=== PATIENT | female | born 1990 | race American Indian/Alaskan Native ===

== ENCOUNTER 2018-06-09 21:14 | Observation (INO) | payer OTHER ==
--- NOTE | 2018-06-09 22:09 | ED PDOC ---
Arrival/HPI - General Chief Complaint: Weakness/Neurological Deficit Time Seen by Provider: 06/09/18 21:32 Historian: Patient - History of Present Illness Narrative History of Present Illness (Text): 06/09/18 22:02 27 year old female, currently taking control medication, presents to the emergency department with right side numbness and tingling. Patient informs she began feeling numbness in her right forearm at about 12:00 yesterday. Patient states today numbness spread to the right side of her right leg. Patient denies any weakness to the extremities. Patient also denies any fevers, chills, headache, dizziness, chest pain, shortness of breath, cough, diaphoresis, abdominal pain, nausea, vomiting, diarrhea, back pain, neck pain, or any other complaint. PMD: [facility] Time/Duration: Prior to Arrival, 24 hours Symptom Onset: Gradual Symptom Course: Unchanged Activities at Onset: Light Past Medical History - Provider Review Nursing Documentation Reviewed: Yes - Infectious Disease Hx of Infectious Diseases: None - Psychiatric Hx Substance Use: No - Surgical History Hx Section: Yes (x1) - Anesthesia Hx Anesthesia: Yes Hx Anesthesia Reactions: No Hx Malignant Hyperthermia: No Family/Social History - Physician Review Nursing Documentation Reviewed: Yes Family/Social History: No Known Family HX Smoking Status: Never Smoked Hx Alcohol Use: No Hx Substance Use: No Allergies/Home Meds Allergies/Adverse Reactions: Allergies No Known Allergies Allergy (Verified 06/09/18 21:35) Review of Systems - Physician Review All systems were reviewed & negative as marked: Yes - Review of Systems Constitutional: absent: Fevers, Night Sweats Respiratory: absent: SOB, Cough Cardiovascular: absent: Chest Pain Gastrointestinal: absent: Abdominal Pain, Diarrhea, Nausea, Vomiting Musculoskeletal: absent: Back Pain, Neck Pain Neurological: Other (Numbness and tingling). absent: Headache, Dizziness Endocrine: absent: Diaphoresis Physical Exam - Physical Exam Narrative Physical Exam (Text): 06/09/18 22:10 Gen: VS reviewed, alert, well developed, well nourished, nontoxic, mild distress Eye: EOMI, PERRL ENT: normal pharynx. Neck: no JVD, supple, no adenopathy CV: regular rate, regular rhythm, no rubs,no murmur, S1, S2 Pulm: no distress, clear to auscultation, no wheeze, no rhonchi, breath sounds equal, no rales Abd: soft, nontender, no guarding, no rebound, no rigidity Ext: no edema Skin: good color, no rash, no cyanosis Psych: responds appropriately to questions, normal affect Neuro: oriented x3, CN2-12 intact grossly, motor intact, diminished sensation to right forearm, lateral right hand, right lower leg, and right foot Vital Signs Reviewed: Yes Vital Signs Temp Pulse Resp BP Pulse Ox 06/09/18 21:30 98.0 F 60 16 128/73 100 Temperature: Afebrile Blood Pressure: Normal Pulse: Regular Respiratory Rate: Normal Appearance: Positive for: Well-Appearing, Non-Toxic, Comfortable Pain Distress: None Mental Status: Positive for: Alert and Oriented X 3 Medical Decision Making ED Course and Treatment: 06/09/18 22:17 Impression: 27 year old female presents with right sided numbness. Plan: -- Type and Screen -- CT Head -- EKG -- CMP, A1C, Lipid, Trop -- CBC, Platelets -- Chest X-ray -- Neuro Consult -- Reassess and disposition Prior Visits: Notes and results from previous visits were reviewed. 06/09/18 22:[address] oliveira, agrees that patient is not a thrombolysis candidate, assuming no ICH start patient on aspirin. 06/10/18 00:[address] danielle to the hospitalist service. patient to be admitted for right sided numbness, rule out cva, risk factors included exogenous hormones - RAD Interpretation Narrative RAD Interpretations (Text): 06/09/18 23:55 cxr my read: no focal infiltrate, no ptx, no wide mediastinum 06/10/18 00:07 CT Head without Intravenous Contrast. CLINICAL HISTORY: NUMBNESS TECHNIQUE: Axial computed tomography images of the head/brain without intravenous contrast. 890.69 mGy-cm COMPARISON: None provided. FINDINGS: BRAIN No acute intraparenchymal hemorrhage. No mass lesion. No CT evidence for acute territorial infarct. No midline shift or extra-axial collections. VENTRICLES: No hydrocephalus. ORBITS: The orbits are unremarkable. SINUSES AND MASTOIDS: The paranasal sinuses and mastoid air cells are clear. BONES: No fracture. SOFT TISSUES: Unremarkable. IMPRESSION: No acute intracranial abnormality. Strap Buckler Machine: ED Physician, Radiologist - EKG Interpretation EKG Interpretation (Text): 06/09/18 22:32 ekg my read: sinus bradycardia at 59 bpm, nml qrs, nml axis, no acute stt w abn Interpreted by ED Physician: Yes NIHSS Scale ([place]) Time Performed: 22:31 - How Severe is the Stoke Baseline Level of Consciousness: 0=Alert LOC to Questions: 0=Both comments correct LOC to commands: 0=Obeys both correctly Best Gaze: 0=Normal Visual: 0=No visual loss Facial: 0=Normal Motor Arm - Left: 0=No drift Motor Arm - Right: 0=No drift Motor Leg - Left: 0=No drift Motor Leg - Right: 0=No drift Limb Ataxia: 0=Absent Sensory: 1=Mild to moderate loss Best Language: 0=No aphasia Dysarthia: 0=Normal articulation Extinction & Inattention (Neglect): 0=Normal, no object Score: 1 Risk Level: Minor Stroke Risk rTPA Inclusion/Exclusion - Refusal of Treatment Patient Refused Treatment: No - Inclusion Criteria for Altepase All of the below criteria for inclusion were reviewed: Yes Patient is 18 years or Older: Yes The Clinical Diagnosis of Ischemic Stroke That is Causing a Potentially Disabling Neurological Deficit: Yes Time of Onset is Well Established to be Less Than 270 Minute Before Treatment Would Begin: Yes Risk/Benefit Discussed With Patient/Family Member Present: Yes - Scribe Statement The provider has reviewed the documentation as recorded by the Scribe Armin Dos Santos All medical record entries made by the Scribe were at my direction and pe rsonally dictated by me. I have reviewed the chart and agree that the record accurately reflects my personal performance of the history, physical exam, medical decision making, and the department course for this patient. I have also personally directed, reviewed, and agree with the discharge instructions and disposition. Disposition/Present on Arrival - Present on Arrival Any Indicators Present on Arrival: No History of DVT/PE: No History of Uncontrolled Diabetes: No Urinary Catheter: No History of Decub. Ulcer: No History Surgical Site Infection Following: None - Disposition Have Diagnosis and Disposition been Completed?: Yes Diagnosis: Numbness Disposition: HOSPITALIZED Disposition Time: 00:09 Patient Plan: Observation Patient Problems: Current Active Problems Problem Status Onset Numbness Acute Condition: STABLE Forms: Jini (Grenadian)
[2018-06-09] MEDS ORDERED: Sodium Chloride 0.9% 1,000 ML IV SCH (22:15)
[2018-06-09 22:23] LABS: BASO # 0.02 K/mm3 (0.0-2.0); BASO % 0.3 % (0.0-3.0); EOS # 0.4 (0.0-0.7); EOS % 4.5 % (1.5-5.0); HEMOGLOBIN 12.2 g/dL (12.0-16.0); LYMPH # 3.8 (1.2-3.4); LYMPH % 48.8 % (22.0-35.0); MEAN CELL VOLUME 89.4 fl (80.0-105.0); MEAN CORPUSCULAR HEMOGLOBIN 29.3 pg (25.0-35.0); MEAN CORPUSCULAR HGB CONC 32.7 g/dl (31.0-37.0); MEAN PLATELET VOLUME 10.2 fl (7.0-11.0); MONO # 0.4 (0.1-0.6); MONO % 5.6 % (1.0-6.0); RBC 4.17 10^6/uL (3.5-6.1); RED CELL DISTRIBUTION WIDTH 14.2 % (11.5-14.5); WHITE BLOOD COUNT 7.7 10^3/uL (4.5-11.0)
[2018-06-09 22:32] LABS: ALB/GLOB RATIO 1.2 (1.1-1.8); ALT/SGPT 14 U/L (7-56); AST/SGOT 19 U/L (14-36); BLOOD UREA NITROGEN 16 mg/dL (7-21); CALCIUM 9.2 mg/dL (8.4-10.5); GFR NON-AFRICAN AMERICAN > 60; HDL CHOLESTEROL 57 mg/dL (29-60)
[2018-06-09 22:43] LABS: LDL CHOLESTEROL 119 mg/dL (0-129)
[2018-06-09 22:46] LABS: INR 1.08; PARTIAL THROMBOPLASTIN TIME 29.3 Seconds (26.9-38.3); PROTHROMBIN TIME 12.2 SECONDS (9.4-12.5); TROPONIN I < 0.01 ng/mL
[2018-06-09 23:16] LABS: BARBITURATES, UR NEGATIVE (NEGATIVE); BENZODIAZEPINES, UR NEGATIVE (NEGATIVE); OPIATES, UR NEGATIVE (NEGATIVE); PHENCYCLIDINE, UR NEGATIVE (NEGATIVE)
--- NOTE | 2018-06-10 00:34 | CP.PCM.HP ---
<Richard Valencia - Last Filed: 06/10/18 01:01> History of Present Illness - History of Present Illness History of Present Illness: Dr Valencia [facility]&P Hospitalist Service 27F w/ no known pmhx, on OCPs, presents to [facility] [place] [facility] with a two day hx of R distal forearm and 1st dorsal web space numbness that changed to hyperesthesias, today she noticed a gradual onset of right posterior leg and plantar foot numbness. Pt denies ever having symptoms like this before. She did not know what to make of this and decided to come into the ED after researching on the internet. Pt has also noticed a 4/10 headache that is worsened by light. Denies weakness, falls, head trauma, CP, SOB, FC ,NV, vision/hearing changes, abnormal gait, dizziness, loss of balance, slurring of speech, facial weakness/numbness. Of note, Pt was recently sick with a URI/sinusitis and was prescribed Z kayy. PMHx: denies PSHx: denies FH: Father 51yo CVA, HTN SocHx: denies smoking etoh drug use Allergies: NKDA HomeRx: OCPs Present on Admission - Present on Admission Any Indicators Present on Admission: No Review of Systems - Review of Systems All systems: reviewed and no additional remarkable complaints except (as per HPI) Past Patient History - Infectious Disease Hx of Infectious Diseases: None - Past Social History Smoking Status: Never Smoked - PSYCHIATRIC Hx Substance Use: No - SURGICAL HISTORY Hx Section: Yes (x1) - ANESTHESIA Hx Anesthesia: Yes Hx Anesthesia Reactions: No Hx Malignant Hyperthermia: No Meds Allergies/Adverse Reactions: Allergies Allergy/AdvReac Type Severity Reaction Status Date / Time No Known Allergies Allergy Verified 06/09/18 21:35 Physical Exam - Constitutional Appears: Non-toxic, No Acute Distress - Head Exam Head Exam: ATRAUMATIC, NORMAL INSPECTION - Eye Exam Eye Exam: EOMI, Normal appearance, PERRL. absent: Nystagmus, Periorbital swelling - ENT Exam ENT Exam: Mucous Membranes Moist - Neck Exam Neck exam: Negative for: Meningismus, Thyromegaly - Respiratory Exam Respiratory Exam: Clear to Auscultation Bilateral. absent: Rales, Rhonchi, Wheezes - Cardiovascular Exam Cardiovascular Exam: RRR, +S1, +S2 - Extremities Exam Extremities exam: Positive for: full ROM, normal capillary refill, pedal pulses present. Negative for: calf tenderness - Neurological Exam Neurological exam: Alert, CN II-XII Intact, Oriented x3, Reflexes Normal Additional comments: Hypersensitivity w/ light palpation of the R distal forearm: distribution- dorsum brach radialis to 1st dorsi interossi- C7 dermatome numbness in RLE below knee, worse in posterior leg and plantar foot aspects - Psychiatric Exam Psychiatric exam: Normal Affect, Normal Mood - Skin Skin Exam: Dry, Normal Color, Warm Results - Vital Signs Recent Vital Signs: Last Vital Signs Temp 98.0 F 06/09/18 21:30 Pulse 64 06/09/18 23:24 Resp 18 06/09/18 23:24 BP 143/92 H 06/09/18 23:24 Pulse Ox 100 06/09/18 23:24 - Labs Result Diagrams: 06/09/18 21:37 06/09/18 21:37 Labs: Laboratory Results - last 24 hr 06/09/18 06/09/18 06/09/18 21:37 21:37 21:37 WBC 7.7 RBC 4.17 Hgb 12.2 Hct 37.3 MCV 89.4 MCH 29.3 MCHC 32.7 RDW 14.2 Plt Count 236 MPV 10.2 Neut % (Auto) 40.8 L Lymph % (Auto) 48.8 H Murray % (Auto) 5.6 Eos % (Auto) 4.5 Baso % (Auto) 0.3 Lymph # (Auto) 3.8 H Murray # (Auto) 0.4 Eos # (Auto) 0.4 Baso # (Auto) 0.02 Absolute Neuts (auto) 3.14 PT 12.2 INR 1.08 APTT 29.3 Sodium 140 Potassium 3.8 Chloride 105 Carbon Dioxide 28 Anion Gap 11 BUN 16 Creatinine 0.7 Est GFR ( Amer) > 60 Est GFR (Non-Af Amer) > 60 Random Glucose 85 Calcium 9.2 Total Bilirubin 0.1 L AST 19 ALT 14 Alkaline Phosphatase 41 Troponin I < 0.01 Total Protein 7.3 Albumin 4.0 Globulin 3.3 Albumin/Globulin Ratio 1.2 Triglycerides 60 Cholesterol 190 LDL Cholesterol Direct 119 HDL Cholesterol 57 Urine Opiates Screen Urine Methadone Screen Ur Barbiturates Screen Ur Phencyclidine Scrn Ur Amphetamines Screen U Benzodiazepines Scrn U Oth Cocaine Metabols U Cannabinoids Screen BBK History Checked 06/09/18 06/09/18 22:52 23:08 WBC RBC Hgb Hct MCV MCH MCHC RDW Plt Count MPV Neut % (Auto) Lymph % (Auto) Murray % (Auto) Eos % (Auto) Baso % (Auto) Lymph # (Auto) Murray # (Auto) Eos # (Auto) Baso # (Auto) Absolute Neuts (auto) PT INR APTT Sodium Potassium Chloride Carbon Dioxide Anion Gap BUN Creatinine Est GFR ( Amer) Est GFR (Non-Af Amer) Random Glucose Calcium Total Bilirubin AST ALT Alkaline Phosphatase Troponin I Total Protein Albumin Globulin Albumin/Globulin Ratio Triglycerides Cholesterol LDL Cholesterol Direct HDL Cholesterol Urine Opiates Screen Negative Urine Methadone Screen Negative Ur Barbiturates Screen Negative Ur Phencyclidine Scrn Negative Ur Amphetamines Screen Negative U Benzodiazepines Scrn Negative U Oth Cocaine Metabols Negative U Cannabinoids Screen Negative BBK History Checked No verified bt Assessment & Plan - Assessment and Plan (Free Text) Assessment: 27F with risk factor of OCP use admitted for Right sided numbness, r/o CVA Plan: r/o CVA -Dr Meadows Neuro consulted: f/u further recs give ASA 325 MRI -NS @ 100 -f/u AM labs -f/u b12 folate and iron -possible post viral PPx ASA 81 daily HHD CK PGY1 <Sofie Resendiz - Last Filed: 06/10/18 19:00> Results - Vital Signs Recent Vital Signs: Last Vital Signs Temp 98.2 F 06/10/18 12:00 Pulse 64 06/10/18 14:00 Resp 18 06/10/18 12:00 BP 125/85 06/10/18 12:00 Pulse Ox 99 06/10/18 06:00 - Labs Result Diagrams: 06/09/18 21:37 06/09/18 21:37 Labs: Laboratory Results - last 24 hr 06/09/18 06/09/18 06/09/18 21:37 21:37 21:37 WBC 7.7 RBC 4.17 Hgb 12.2 Hct 37.3 MCV 89.4 MCH 29.3 MCHC 32.7 RDW 14.2 Plt Count 236 MPV 10.2 Neut % (Auto) 40.8 L Lymph % (Auto) 48.8 H Murray % (Auto) 5.6 Eos % (Auto) 4.5 Baso % (Auto) 0.3 Lymph # (Auto) 3.8 H Murray # (Auto) 0.4 Eos # (Auto) 0.4 Baso # (Auto) 0.02 Absolute Neuts (auto) 3.14 PT 12.2 INR 1.08 APTT 29.3 Sodium 140 Potassium 3.8 Chloride 105 Carbon Dioxide 28 Anion Gap 11 BUN 16 Creatinine 0.7 Est GFR ( Amer) > 60 Est GFR (Non-Af Amer) > 60 Random Glucose 85 Hemoglobin A1c Calcium 9.2 Iron TIBC % Saturation Total Bilirubin 0.1 L AST 19 ALT 14 Alkaline Phosphatase 41 Troponin I < 0.01 Total Protein 7.3 Albumin 4.0 Globulin 3.3 Albumin/Globulin Ratio 1.2 Triglycerides 60 Cholesterol 190 LDL Cholesterol Direct 119 HDL Cholesterol 57 Vitamin B12 Folate TSH 3rd Generation Urine Opiates Screen Urine Methadone Screen Ur Barbiturates Screen Ur Phencyclidine Scrn Ur Amphetamines Screen U Benzodiazepines Scrn U Oth Cocaine Metabols U Cannabinoids Screen RPR Blood Type Blood Type Confirm Antibody Screen BBK History Checked 06/09/18 06/09/18 06/09/18 21:37 21:37 21:37 WBC RBC Hgb Hct MCV MCH MCHC RDW Plt Count MPV Neut % (Auto) Lymph % (Auto) Murray % (Auto) Eos % (Auto) Baso % (Auto) Lymph # (Auto) Murray # (Auto) Eos # (Auto) Baso # (Auto) Absolute Neuts (auto) PT INR APTT Sodium Potassium Chloride Carbon Dioxide Anion Gap BUN Creatinine Est GFR ( Amer) Est GFR (Non-Af Amer) Random Glucose Hemoglobin A1c 5.1 Calcium Iron 121 TIBC 370 % Saturation 33 Total Bilirubin AST ALT Alkaline Phosphatase Troponin I Total Protein Albumin Globulin Albumin/Globulin Ratio Triglycerides Cholesterol LDL Cholesterol Direct HDL Cholesterol Vitamin B12 490 Folate 5.4 TSH 3rd Generation Urine Opiates Screen Urine Methadone Screen Ur Barbiturates Screen Ur Phencyclidine Scrn Ur Amphetamines Screen U Benzodiazepines Scrn U Oth Cocaine Metabols U Cannabinoids Screen RPR Blood Type Blood Type Confirm Antibody Screen BBK History Checked 06/09/18 06/09/18 06/09/18 21:37 21:37 22:52 WBC RBC Hgb Hct MCV MCH MCHC RDW Plt Count MPV Neut % (Auto) Lymph % (Auto) Murray % (Auto) Eos % (Auto) Baso % (Auto) Lymph # (Auto) Murray # (Auto) Eos # (Auto) Baso # (Auto) Absolute Neuts (auto) PT INR APTT Sodium Potassium Chloride Carbon Dioxide Anion Gap BUN Creatinine Est GFR ( Amer) Est GFR (Non-Af Amer) Random Glucose Hemoglobin A1c Calcium Iron TIBC % Saturation Total Bilirubin AST ALT Alkaline Phosphatase Troponin I Total Protein Albumin Globulin Albumin/Globulin Ratio Triglycerides Cholesterol LDL Cholesterol Direct HDL Cholesterol Vitamin B12 Folate TSH 3rd Generation 2.29 Urine Opiates Screen Negative Urine Methadone Screen Negative Ur Barbiturates Screen Negative Ur Phencyclidine Scrn Negative Ur Amphetamines Screen Negative U Benzodiazepines Scrn Negative U Oth Cocaine Metabols Negative U Cannabinoids Screen Negative RPR Nonreactive Blood Type Blood Type Confirm Antibody Screen BBK History Checked 06/09/18 06/09/18 23:08 23:22 WBC RBC Hgb Hct MCV MCH MCHC RDW Plt Count MPV Neut % (Auto) Lymph % (Auto) Murray % (Auto) Eos % (Auto) Baso % (Auto) Lymph # (Auto) Murray # (Auto) Eos # (Auto) Baso # (Auto) Absolute Neuts (auto) PT INR APTT Sodium Potassium Chloride Carbon Dioxide Anion Gap BUN Creatinine Est GFR ( Amer) Est GFR (Non-Af Amer) Random Glucose Hemoglobin A1c Calcium Iron TIBC % Saturation Total Bilirubin AST ALT Alkaline Phosphatase Troponin I Total Protein Albumin Globulin Albumin/Globulin Ratio Triglycerides Cholesterol LDL Cholesterol Direct HDL Cholesterol Vitamin B12 Folate TSH 3rd Generation Urine Opiates Screen Urine Methadone Screen Ur Barbiturates Screen Ur Phencyclidine Scrn Ur Amphetamines Screen U Benzodiazepines Scrn U Oth Cocaine Metabols U Cannabinoids Screen RPR Blood Type O POSITIVE Blood Type Confirm O POSITIVE Antibody Screen Negative BBK History Checked No verified bt Attending/Attestation - Attestation I have personally seen and examined this patient.: Yes I have fully participated in the care of the patient.: Yes I have reviewed all pertinent clinical information: Yes Notes (Text): 06/10/18 19:00 seen and examined. Discussed with resident. A& P as above.
[2018-06-10 01:59] LABS: IRON 121 ug/dL (45-180)
[2018-06-10 02:08] LABS: % IRON SATURATION 33 % (20-55); TOTAL IRON BINDING CAPACITY 370 ug/dL (265-497)
[2018-06-10 02:38] VITALS: RESP 18
[2018-06-10 08:01] VITALS: O2SAT 99
--- NOTE | 2018-06-10 08:22 | CT ---
Date of service: 06/09/2018 PROCEDURE: CT HEAD WITHOUT CONTRAST. HISTORY: numbness COMPARISON: None available. TECHNIQUE: Axial computed tomography images were obtained through the head/brain without intravenous contrast. Radiation dose: Total exam DLP = 890.69 mGy-cm. This CT exam was performed using one or more of the following dose reduction techniques: Automated exposure control, adjustment of the mA and/or kV according to patient size, and/or use of iterative reconstruction technique. FINDINGS: HEMORRHAGE: No intracranial hemorrhage. BRAIN: No mass effect or edema. No atrophy or chronic microvascular ischemic changes. VENTRICLES: No hydrocephalus. CALVARIUM: Unremarkable. PARANASAL SINUSES: Unremarkable as visualized. No significant inflammatory changes. MASTOID AIR CELLS: Unremarkable as visualized. No inflammatory changes. OTHER FINDINGS: None. IMPRESSION: No acute intracranial pathology identified. Preliminary impression was provided by Tier [facility].
--- NOTE | 2018-06-10 08:27 | RAD ---
HISTORY: cva COMPARISON: None available TECHNIQUE: Chest, one view. FINDINGS: LUNGS: No focal consolidation. Please note that chest x-ray has limited sensitivity for the detection of pulmonary masses. PLEURA: No significant pleural effusion identified. No definite pneumothorax . CARDIOVASCULAR: The cardiomediastinal silhouette appears within normal limits of size. No significant atherosclerotic calcification present. OSSEOUS STRUCTURES: No acute osseous abnormality identified. VISUALIZED UPPER ABDOMEN: Unremarkable. OTHER FINDINGS: None. IMPRESSION: No focal consolidation.
--- NOTE | 2018-06-10 09:23 | CARD ---
APPROVED REPORT Date of service: 06/09/2018 EKG Measurement Heart [id number] <Conclusion> Sinus bradycardia Otherwise normal ECG
[2018-06-10 12:04] VITALS: BP 125/85; TEMP 98.2
--- NOTE | 2018-06-10 12:33 | MRI ---
Date of service: 06/10/2018 PROCEDURE: MRI BRAIN WITHOUT CONTRAST HISTORY: right arm and right leg paraesthesia and pain COMPARISON: None available. TECHNIQUE: Multiplanar, multisequence MR images of the brain were obtained without intravenous contrast enhancement. FINDINGS: HEMORRHAGE: None DWI: No evidence of an acute or early subacute infarction. BRAIN PARENCHYMA: No mass effect or edema. No atrophy or chronic microvascular ischemic changes. VENTRICLES: Unremarkable. No hydrocephalus. CRANIUM: Unremarkable. ORBITS: Grossly unremarkable. PARANASAL SINUSES/MASTOIDS: Clear VASCULAR SYSTEM: Skull base flow voids intact. OTHER FINDINGS: None. IMPRESSION: Unremarkable non contrast enhanced MRI of the brain.
--- NOTE | 2018-06-10 12:34 | MRI ---
Date of service: 06/10/2018 PROCEDURE: MR CERVICAL SPINE WITHOUT CONTRAST HISTORY: hand weakness COMPARISON: None available. TECHNIQUE: Multiecho multiplanar sequences were performed through the cervical spine without the use of intravenous contrast. FINDINGS: Normal lordotic curvature. Craniocervical junction unremarkable. Vertebral body heights preserved. No marrow signal abnormality. Normal cervical cord. No paraspinal abnormality. C2-C3: No disc herniation, spinal canal stenosis or neural foraminal narrowing. C3-C4: No disc herniation, spinal canal stenosis or neural foraminal narrowing. C4-C5: No disc herniation, spinal canal stenosis or neural foraminal narrowing. C5-C6: No disc herniation, spinal canal stenosis or neural foraminal narrowing. C6-C7: No disc herniation, spinal canal stenosis or neural foraminal narrowing. C7-T1: No disc herniation, spinal canal stenosis or neural foraminal narrowing. OTHER FINDINGS: None. IMPRESSION: Unremarkable non contrast enhanced MRI of the cervical spine.
[2018-06-10 13:50] LABS: FOLATE 5.4 ng/mL
--- NOTE | 2018-06-10 14:06 | MRI ---
Date of service: 06/10/2018 PROCEDURE: MR LUMBAR SPINE WITHOUT CONTRAST HISTORY: leg weakness COMPARISON: None available. TECHNIQUE: Multiecho multiplanar sequences were performed through the lumbar spine without the use of intravenous contrast. FINDINGS: Normal lumbar lordosis. Vertebral body heights are preserved. Marrow signal unremarkable. Conus medullaris unremarkable at the level of Paraspinal soft tissues are unremarkable. T12-L1: No disc herniation, spinal canal stenosis or neural foraminal narrowing. L1-2: No disc herniation, spinal canal stenosis or neural foraminal narrowing. L2-3: No disc herniation, spinal canal stenosis or neural foraminal narrowing. L3-4: No disc herniation, spinal canal stenosis or neural foraminal narrowing. L4-5: No disc herniation, spinal canal stenosis or neural foraminal narrowing. L5-S1: No disc herniation, spinal canal stenosis or neural foraminal narrowing. OTHER FINDINGS: None. IMPRESSION: Unremarkable non contrast enhanced MRI of the lumbar spine.
--- NOTE | 2018-06-10 14:13 | CP.PCM.CON ---
<Alf Mina - Last Filed: 06/10/18 14:21> History of Present Illness - History of Present Illness History of Present Illness: Alf Mina PGY2 Neurology Consult Note for Dr. Piedra Requested by: Dr. Orr 27F with no significant pmhx, on OCPs, [place] [facility] [place] hx of R distal forearm and 1st dorsal web space numbness. She also noticed gradual onset of right posterior leg and plantar foot numbness. Pt denies ever having symptoms like this before. Patient denies any trauma to arm or leg, weakness, falls, head trauma, CP, SOB, FC ,NV, vision/hearing changes, abnormal gait, dizziness, loss of balance, slurring of speech, facial weakness/numbness. Of note, Pt was recently sick with a URI/sinusitis and was prescribed Z kayy. PMHx: denies PSHx: denies FH: Father at 51yo CVA, HTN SocHx: denies smoking , alcohol, or illicit drug use Allergies: NKDA HomeRx: OCPs Review of Systems - Constitutional Constitutional: absent: Headache - Cardiovascular Cardiovascular: absent: Chest Pain - Musculoskeletal Musculoskeletal: Numbness. absent: Radiating Pain into Limb - Neurological Neurological: Numbness. absent: Behavioral Changes, Burning Sensations, Confusion, Convulsions, Disequilibrium, Dizziness, Focal Weakness, Frequent Falls, Headaches, Lack of Coordination, Loss of Vision, Memory Loss, Radicular Pain, Restless Legs, Sensory Deficit, Syncope, Tingling, Tremor, Vertigo, Weakness Past Patient History - Infectious Disease Hx of Infectious Diseases: None - Past Social History Smoking Status: Never Smoked - CARDIAC Hx Cardiac Disorders: No - PULMONARY Hx Respiratory Disorders: No - NEUROLOGICAL Hx Neurological Disorder: No - HEENT Hx HEENT Problems: No - RENAL Hx Chronic Kidney Disease: No - ENDOCRINE/METABOLIC Hx Endocrine Disorders: No - HEMATOLOGICAL/ONCOLOGICAL Hx Blood Disorders: No - INTEGUMENTARY Hx Dermatological Problems: No - MUSCULOSKELETAL/RHEUMATOLOGICAL Hx Musculoskeletal Disorders: No Hx Falls: No - GASTROINTESTINAL Hx Gastrointestinal Disorders: No - GENITOURINARY/GYNECOLOGICAL Hx Genitourinary Disorders: No - PSYCHIATRIC Hx Substance Use: No - SURGICAL HISTORY Hx Section: Yes (x1) - ANESTHESIA Hx Anesthesia: Yes Hx Anesthesia Reactions: No Hx Malignant Hyperthermia: No Meds Allergies/Adverse Reactions: Allergies Allergy/AdvReac Type Severity Reaction Status Date / Time No Known Allergies Allergy Verified 06/09/18 21:35 - Medications Medications: Current Medications Aspirin (Aspirin Chewable) 81 mg PO DAILY [facility] Last Admin: 06/10/18 09:18 Dose: Not Given Sodium Chloride (Sodium Chloride 0.9%) 1,000 mls @ 100 mls/hr IV .Q10H [facility] Last Admin: 06/09/18 22:30 Dose: 100 mls/hr Physical Exam - Constitutional Appears: Non-toxic - Head Exam Head Exam: ATRAUMATIC, NORMAL INSPECTION, NORMOCEPHALIC - Eye Exam Eye Exam: EOMI, Normal appearance - ENT Exam ENT Exam: Mucous Membranes Moist - Cardiovascular Exam Cardiovascular Exam: +S1, +S2 - Neurological Exam Neurological exam: Alert, CN II-XII Intact, Normal Gait, Oriented x3, Reflexes Normal Additional comments: slight sensory deficit in right distal forearm and and right lower leg posterior aspect. ROM intact Results - Vital Signs Recent Vital Signs: Last Vital Signs Temp 98.2 F 06/10/18 12:00 Pulse 69 06/10/18 12:00 Resp 18 06/10/18 12:00 BP 125/85 06/10/18 12:00 Pulse Ox 99 06/10/18 06:00 - Labs Result Diagrams: 06/09/18 21:37 06/09/18 21:37 Labs: Laboratory Results - last 24 hr 06/09/18 06/09/18 06/09/18 21:37 21:37 21:37 WBC 7.7 RBC 4.17 Hgb 12.2 Hct 37.3 MCV 89.4 MCH 29.3 MCHC 32.7 RDW 14.2 Plt Count 236 MPV 10.2 Neut % (Auto) 40.8 L Lymph % (Auto) 48.8 H Wise % (Auto) 5.6 Eos % (Auto) 4.5 Baso % (Auto) 0.3 Lymph # (Auto) 3.8 H Wise # (Auto) 0.4 Eos # (Auto) 0.4 Baso # (Auto) 0.02 Absolute Neuts (auto) 3.14 PT 12.2 INR 1.08 APTT 29.3 Sodium 140 Potassium 3.8 Chloride 105 Carbon Dioxide 28 Anion Gap 11 BUN 16 Creatinine 0.7 Est GFR ( Amer) > 60 Est GFR (Non-Af Amer) > 60 Random Glucose 85 Hemoglobin A1c Calcium 9.2 Iron TIBC % Saturation Total Bilirubin 0.1 L AST 19 ALT 14 Alkaline Phosphatase 41 Troponin I < 0.01 Total Protein 7.3 Albumin 4.0 Globulin 3.3 Albumin/Globulin Ratio 1.2 Triglycerides 60 Cholesterol 190 LDL Cholesterol Direct 119 HDL Cholesterol 57 Vitamin B12 Folate TSH 3rd Generation Urine Opiates Screen Urine Methadone Screen Ur Barbiturates Screen Ur Phencyclidine Scrn Ur Amphetamines Screen U Benzodiazepines Scrn U Oth Cocaine Metabols U Cannabinoids Screen Blood Type Blood Type Confirm Antibody Screen BBK History Checked 06/09/18 06/09/18 06/09/18 21:37 21:37 21:37 WBC RBC Hgb Hct MCV MCH MCHC RDW Plt Count MPV Neut % (Auto) Lymph % (Auto) Wise % (Auto) Eos % (Auto) Baso % (Auto) Lymph # (Auto) Wise # (Auto) Eos # (Auto) Baso # (Auto) Absolute Neuts (auto) PT INR APTT Sodium Potassium Chloride Carbon Dioxide Anion Gap BUN Creatinine Est GFR ( Amer) Est GFR (Non-Af Amer) Random Glucose Hemoglobin A1c 5.1 Calcium Iron 121 TIBC 370 % Saturation 33 Total Bilirubin AST ALT Alkaline Phosphatase Troponin I Total Protein Albumin Globulin Albumin/Globulin Ratio Triglycerides Cholesterol LDL Cholesterol Direct HDL Cholesterol Vitamin B12 490 Folate 5.4 TSH 3rd Generation Urine Opiates Screen Urine Methadone Screen Ur Barbiturates Screen Ur Phencyclidine Scrn Ur Amphetamines Screen U Benzodiazepines Scrn U Oth Cocaine Metabols U Cannabinoids Screen Blood Type Blood Type Confirm Antibody Screen BBK History Checked 06/09/18 06/09/18 06/09/18 21:37 22:52 23:08 WBC RBC Hgb Hct MCV MCH MCHC RDW Plt Count MPV Neut % (Auto) Lymph % (Auto) Wise % (Auto) Eos % (Auto) Baso % (Auto) Lymph # (Auto) Wise # (Auto) Eos # (Auto) Baso # (Auto) Absolute Neuts (auto) PT INR APTT Sodium Potassium Chloride Carbon Dioxide Anion Gap BUN Creatinine Est GFR ( Amer) Est GFR (Non-Af Amer) Random Glucose Hemoglobin A1c Calcium Iron TIBC % Saturation Total Bilirubin AST ALT Alkaline Phosphatase Troponin I Total Protein Albumin Globulin Albumin/Globulin Ratio Triglycerides Cholesterol LDL Cholesterol Direct HDL Cholesterol Vitamin B12 Folate TSH 3rd Generation 2.29 Urine Opiates Screen Negative Urine Methadone Screen Negative Ur Barbiturates Screen Negative Ur Phencyclidine Scrn Negative Ur Amphetamines Screen Negative U Benzodiazepines Scrn Negative U Oth Cocaine Metabols Negative U Cannabinoids Screen Negative Blood Type O POSITIVE Blood Type Confirm Antibody Screen Negative BBK History Checked No verified bt 06/09/18 23:22 WBC RBC Hgb Hct MCV MCH MCHC RDW Plt Count MPV Neut % (Auto) Lymph % (Auto) Wise % (Auto) Eos % (Auto) Baso % (Auto) Lymph # (Auto) Wise # (Auto) Eos # (Auto) Baso # (Auto) Absolute Neuts (auto) PT INR APTT Sodium Potassium Chloride Carbon Dioxide Anion Gap BUN Creatinine Est GFR ( Amer) Est GFR (Non-Af Amer) Random Glucose Hemoglobin A1c Calcium Iron TIBC % Saturation Total Bilirubin AST ALT Alkaline Phosphatase Troponin I Total Protein Albumin Globulin Albumin/Globulin Ratio Triglycerides Cholesterol LDL Cholesterol Direct HDL Cholesterol Vitamin B12 Folate TSH 3rd Generation Urine Opiates Screen Urine Methadone Screen Ur Barbiturates Screen Ur Phencyclidine Scrn Ur Amphetamines Screen U Benzodiazepines Scrn U Oth Cocaine Metabols U Cannabinoids Screen Blood Type Blood Type Confirm O POSITIVE Antibody Screen BBK History Checked Assessment & Plan - Assessment and Plan (Free Text) Plan: Right Arm numbness and RLE numbness rule out stroke -CT head negative for acute patholgy -Brain MRI negative -Lumbar and Spine MRI negative -f/u b12 folate -syphillis workup -patient does not seem to have CVA, no need to statin or aspirin therapy -PT/OT -possible gabapentin if symptoms continue <Jj Piedra - Last Filed: 06/10/18 15:54> Meds - Medications Medications: Current Medications Aspirin (Aspirin Chewable) 81 mg PO DAILY [facility] Last Admin: 06/10/18 09:18 Dose: Not Given Sodium Chloride (Sodium Chloride 0.9%) 1,000 mls @ 100 mls/hr IV .Q10H [facility] Last Admin: 06/09/18 22:30 Dose: 100 mls/hr Results - Vital Signs Recent Vital Signs: Last Vital Signs Temp 98.2 F 06/10/18 12:00 Pulse 64 06/10/18 14:00 Resp 18 06/10/18 12:00 BP 125/85 06/10/18 12:00 Pulse Ox 99 06/10/18 06:00 - Labs Result Diagrams: 06/09/18 21:37 06/09/18 21:37 Labs: Laboratory Results - last 24 hr 06/09/18 06/09/18 06/09/18 21:37 21:37 21:37 WBC 7.7 RBC 4.17 Hgb 12.2 Hct 37.3 MCV 89.4 MCH 29.3 MCHC 32.7 RDW 14.2 Plt Count 236 MPV 10.2 Neut % (Auto) 40.8 L Lymph % (Auto) 48.8 H Wise % (Auto) 5.6 Eos % (Auto) 4.5 Baso % (Auto) 0.3 Lymph # (Auto) 3.8 H Wise # (Auto) 0.4 Eos # (Auto) 0.4 Baso # (Auto) 0.02 Absolute Neuts (auto) 3.14 PT 12.2 INR 1.08 APTT 29.3 Sodium 140 Potassium 3.8 Chloride 105 Carbon Dioxide 28 Anion Gap 11 BUN 16 Creatinine 0.7 Est GFR ( Amer) > 60 Est GFR (Non-Af Amer) > 60 Random Glucose 85 Hemoglobin A1c Calcium 9.2 Iron TIBC % Saturation Total Bilirubin 0.1 L AST 19 ALT 14 Alkaline Phosphatase 41 Troponin I < 0.01 Total Protein 7.3 Albumin 4.0 Globulin 3.3 Albumin/Globulin Ratio 1.2 Triglycerides 60 Cholesterol 190 LDL Cholesterol Direct 119 HDL Cholesterol 57 Vitamin B12 Folate TSH 3rd Generation Urine Opiates Screen Urine Methadone Screen Ur Barbiturates Screen Ur Phencyclidine Scrn Ur Amphetamines Screen U Benzodiazepines Scrn U Oth Cocaine Metabols U Cannabinoids Screen RPR Blood Type Blood Type Confirm Antibody Screen BBK History Checked 06/09/18 06/09/18 06/09/18 21:37 21:37 21:37 WBC RBC Hgb Hct MCV MCH MCHC RDW Plt Count MPV Neut % (Auto) Lymph % (Auto) Wise % (Auto) Eos % (Auto) Baso % (Auto) Lymph # (Auto) Wise # (Auto) Eos # (Auto) Baso # (Auto) Absolute Neuts (auto) PT INR APTT Sodium Potassium Chloride Carbon Dioxide Anion Gap BUN Creatinine Est GFR ( Amer) Est GFR (Non-Af Amer) Random Glucose Hemoglobin A1c 5.1 Calcium Iron 121 TIBC 370 % Saturation 33 Total Bilirubin AST ALT Alkaline Phosphatase Troponin I Total Protein Albumin Globulin Albumin/Globulin Ratio Triglycerides Cholesterol LDL Cholesterol Direct HDL Cholesterol Vitamin B12 490 Folate 5.4 TSH 3rd Generation Urine Opiates Screen Urine Methadone Screen Ur Barbiturates Screen Ur Phencyclidine Scrn Ur Amphetamines Screen U Benzodiazepines Scrn U Oth Cocaine Metabols U Cannabinoids Screen RPR Blood Type Blood Type Confirm Antibody Screen BBK History Checked 06/09/18 06/09/18 06/09/18 21:37 21:37 22:52 WBC RBC Hgb Hct MCV MCH MCHC RDW Plt Count MPV Neut % (Auto) Lymph % (Auto) Wise % (Auto) Eos % (Auto) Baso % (Auto) Lymph # (Auto) Wise # (Auto) Eos # (Auto) Baso # (Auto) Absolute Neuts (auto) PT INR APTT Sodium Potassium Chloride Carbon Dioxide Anion Gap BUN Creatinine Est GFR ( Amer) Est GFR (Non-Af Amer) Random Glucose Hemoglobin A1c Calcium Iron TIBC % Saturation Total Bilirubin AST ALT Alkaline Phosphatase Troponin I Total Protein Albumin Globulin Albumin/Globulin Ratio Triglycerides Cholesterol LDL Cholesterol Direct HDL Cholesterol Vitamin B12 Folate TSH 3rd Generation 2.29 Urine Opiates Screen Negative Urine Methadone Screen Negative Ur Barbiturates Screen Negative Ur Phencyclidine Scrn Negative Ur Amphetamines Screen Negative U Benzodiazepines Scrn Negative U Oth Cocaine Metabols Negative U Cannabinoids Screen Negative RPR Nonreactive Blood Type Blood Type Confirm Antibody Screen BBK History Checked 06/09/18 06/09/18 23:08 23:22 WBC RBC Hgb Hct MCV MCH MCHC RDW Plt Count MPV Neut % (Auto) Lymph % (Auto) Wise % (Auto) Eos % (Auto) Baso % (Auto) Lymph # (Auto) Wise # (Auto) Eos # (Auto) Baso # (Auto) Absolute Neuts (auto) PT INR APTT Sodium Potassium Chloride Carbon Dioxide Anion Gap BUN Creatinine Est GFR ( Amer) Est GFR (Non-Af Amer) Random Glucose Hemoglobin A1c Calcium Iron TIBC % Saturation Total Bilirubin AST ALT Alkaline Phosphatase Troponin I Total Protein Albumin Globulin Albumin/Globulin Ratio Triglycerides Cholesterol LDL Cholesterol Direct HDL Cholesterol Vitamin B12 Folate TSH 3rd Generation Urine Opiates Screen Urine Methadone Screen Ur Barbiturates Screen Ur Phencyclidine Scrn Ur Amphetamines Screen U Benzodiazepines Scrn U Oth Cocaine Metabols U Cannabinoids Screen RPR Blood Type O POSITIVE Blood Type Confirm O POSITIVE Antibody Screen Negative BBK History Checked No verified bt Assessment & Plan - Assessment and Plan (Free Text) Plan: All medical record entries made by the Resident were at my direction and personally dictated by me. I have reviewed the chart and agree that the record accurately reflects my personal performance of the history, physical exam, medical decision making, and the department course for this patient. I have also personally directed, reviewed, and agree with the discharge instructions and disposition. 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 I will follow up with her outpatient, with EMG/NCV recommended. Dr. Piedra Neurology
[2018-06-10 15:44] VITALS: PULSE 64
--- NOTE | 2018-06-10 16:08 | CP.PCM.DIS ---
<BrandanOctavio - Last Filed: 06/10/18 16:09> Provider - Provider Date of Admission: 06/10/18 00:10 Attending physician: Poli Mckeon MD Consults: 06/09/18 22:12 Stroke Team Consult Routine Comment: Consulting Provider: Neurohospitalist Consulting Physician: NEUROHOSP Neurohospitalist for Consult: David Meadows Neurohospitalist for Consult: Jj Piedra Reason for Consult: right sided numbness, on BCP Time Spent in preparation of Discharge (in minutes): 35 Hospital Course - Lab Results Lab Results: Most Recent Lab Values WBC 7.7 10^3/uL (4.5-11.0) 06/09/18 21:37 RBC 4.17 10^6/uL (3.5-6.1) 06/09/18 21:37 Hgb 12.2 g/dL (12.0-16.0) 06/09/18 21:37 Hct 37.3 % (36.0-48.0) 06/09/18 21:37 MCV 89.4 fl (80.0-105.0) 06/09/18 21:37 MCH 29.3 pg (25.0-35.0) 06/09/18 21:37 MCHC 32.7 g/dl (31.0-37.0) 06/09/18 21:37 RDW 14.2 % (11.5-14.5) 06/09/18 21:37 Plt Count 236 10^3/uL (120.0-450.0) 06/09/18 21:37 MPV 10.2 fl (7.0-11.0) 06/09/18 21:37 Neut % (Auto) 40.8 % (50.0-68.0) L 06/09/18 21:37 Lymph % (Auto) 48.8 % (22.0-35.0) H 06/09/18 21:37 Maury % (Auto) 5.6 % (1.0-6.0) 06/09/18 21:37 Eos % (Auto) 4.5 % (1.5-5.0) 06/09/18 21:37 Baso % (Auto) 0.3 % (0.0-3.0) 06/09/18 21:37 Lymph # (Auto) 3.8 (1.2-3.4) H 06/09/18 21:37 Maury # (Auto) 0.4 (0.1-0.6) 06/09/18 21:37 Eos # (Auto) 0.4 (0.0-0.7) 06/09/18 21:37 Baso # (Auto) 0.02 K/mm3 (0.0-2.0) 06/09/18 21:37 Absolute Neuts (auto) 3.14 (1.4-6.5) 06/09/18 21:37 PT 12.2 SECONDS (9.4-12.5) 06/09/18 21:37 INR 1.08 06/09/18 21:37 APTT 29.3 Seconds (26.9-38.3) 06/09/18 21:37 Sodium 140 mmol/L (132-148) 06/09/18 21:37 Potassium 3.8 mmol/L (3.6-5.0) 06/09/18 21:37 Chloride 105 mmol/L (98-107) 06/09/18 21:37 Carbon Dioxide 28 mmol/L (21-33) 06/09/18 21:37 Anion Gap 11 (10-20) 06/09/18 21:37 BUN 16 mg/dL (7-21) 06/09/18 21:37 Creatinine 0.7 mg/dl (0.7-1.2) 06/09/18 21:37 Est GFR ( Amer) > 60 06/09/18 21:37 Est GFR (Non-Af Amer) > 60 06/09/18 21:37 Random Glucose 85 mg/dL (70-110) 06/09/18 21:37 Hemoglobin A1c 5.1 % (4.2-6.5) 06/09/18 21:37 Calcium 9.2 mg/dL (8.4-10.5) 06/09/18 21:37 Iron 121 ug/dL (45-180) 06/09/18 21:37 TIBC 370 ug/dL (265-497) 06/09/18 21:37 % Saturation 33 % (20-55) 06/09/18 21:37 Total Bilirubin 0.1 mg/dL (0.2-1.3) L 06/09/18 21:37 AST 19 U/L (14-36) 06/09/18 21:37 ALT 14 U/L (7-56) 06/09/18 21:37 Alkaline Phosphatase 41 U/L (38-126) 06/09/18 21:37 Troponin I < 0.01 ng/mL 06/09/18 21:37 Total Protein 7.3 g/dL (5.8-8.3) 06/09/18 21:37 Albumin 4.0 g/dL (3.0-4.8) 06/09/18 21:37 Globulin 3.3 gm/dL 06/09/18 21:37 Albumin/Globulin Ratio 1.2 (1.1-1.8) 06/09/18 21:37 Triglycerides 60 mg/dL (35-160) 06/09/18 21:37 Cholesterol 190 mg/dL (130-200) 06/09/18 21:37 LDL Cholesterol Direct 119 mg/dL (0-129) 06/09/18 21:37 HDL Cholesterol 57 mg/dL (29-60) 06/09/18 21:37 Vitamin B12 490 pg/mL (239-931) 06/09/18 21:37 Folate 5.4 ng/mL 06/09/18 21:37 TSH 3rd Generation 2.29 mIU/mL (0.46-4.68) 06/09/18 21:37 Urine Opiates Screen Negative (NEGATIVE) 06/09/18 22:52 Urine Methadone Screen Negative (NEGATIVE) 06/09/18 22:52 Ur Barbiturates Screen Negative (NEGATIVE) 06/09/18 22:52 Ur Phencyclidine Scrn Negative (NEGATIVE) 06/09/18 22:52 Ur Amphetamines Screen Negative (NEGATIVE) 06/09/18 22:52 U Benzodiazepines Scrn Negative (NEGATIVE) 06/09/18 22:52 U Oth Cocaine Metabols Negative (NEGATIVE) 06/09/18 22:52 U Cannabinoids Screen Negative (NEGATIVE) 06/09/18 22:52 RPR Nonreactive (NONREACTIVE) 06/09/18 21:37 Blood Type O POSITIVE 06/09/18 23:08 Blood Type Confirm O POSITIVE 06/09/18 23:22 Antibody Screen Negative 06/09/18 23:08 BBK History Checked No verified bt 06/09/18 23:08 - Hospital Course Hospital Course: Octavio Gipson, PGY1 Discharge Summary for Dr. Mckeon Patient is a 27F w/ no known pmhx, on OCPs, presented to [facility] with a two day hx of R distal forearm and 1st dorsal web space numbness that changed to hyperesthesias, today she noticed a gradual onset of right posterior leg and plantar foot numbness. She denies ever having symptoms like this before and decided to come to the ED for that reason. Of note, patient was recently sick with a URI/sinusitis and was prescribed Z kayy for which she finished the course. Patient was a code stroke in the ED. Neurology was placed on consult. NIHSS was 0. Patient's CT Head was unremarkable. CXR was negative. UDS was negative. Brain MRI and lumbar spine MRI was also negative. Patient was given aspirin. Patient also tolerated PO without difficulties and is at her usual baseline. As per neuro, this is not a stroke. It is likely peripheral nerve (radial) neuropathy. Patient's labs were also within normal limits. Upon reviewing all labs, imaging, and vitals patient is hemodynamically stable for discharge to home. She will discharged on gabapentin as per neuro recs. She is safe for discharge and will follow up with her PMD as outpatient. Discharge Exam - Head Exam Head Exam: ATRAUMATIC, NORMAL INSPECTION, NORMOCEPHALIC - Eye Exam Eye Exam: EOMI, Normal appearance - ENT Exam ENT Exam: Mucous Membranes Moist - Neck Exam Neck exam: Normal Inspection - Respiratory Exam Respiratory Exam: Clear to PA & Lateral. absent: Rales, Rhonchi, Wheezes, Respiratory Distress - Cardiovascular Exam Cardiovascular Exam: RRR, +S1, +S2 - GI/Abdominal Exam GI & Abdominal Exam: Soft. absent: Guarding, Organomegaly, Rebound, Rigid, Tenderness - Extremities Exam Extremities exam: normal inspection - Back Exam Back exam: NORMAL INSPECTION - Neurological Exam Neurological exam: Alert, CN II-XII Intact, Oriented x3 Additional comments: No focal neurologic deficits. No facial droop. Patient has some numbness in the C5-C6 distribution of the right forearm/hand. She also has some right lower extremity numbness along the lateral aspect of right leg into the lower leg. Sensation is intact in all extremities. Pulses are intact in all extremities. Motor strength is 5/5 in all extremities. - Psychiatric Exam Psychiatric exam: Normal Affect, Normal Mood - Skin Skin Exam: Dry, Intact, Normal Color, Warm Discharge Plan - Discharge Medications Prescriptions: Gabapentin [Neurontin] 100 mg PO TID #21 capsule - Follow Up Plan Condition: STABLE Disposition: HOME/ ROUTINE Patient education suggested?: Yes Instructions: Low Cholesterol, Saturated Fat, and Trans Fat Diet , Hand Numbness Additional Instructions: Please follow-up with your PMD at [facility] within 7 days of discharge. Please follow-up with a neurologist if symptoms continues. You will be given a script for gabapentin 100mg, take this medication at 10AM, 2PM and 6PM. Your LDL (bad cholesterol) was high-normal - please eat a low saturated fat diet (less fried food, less red meat) to bring your LDL number lower. If symptoms worsen promptly go to your nearest emergency department. Referrals: Jj Piedra MD [Staff Provider] - 1 Week <Poli Mckeon - Last Filed: 06/11/18 11:00> Provider - Provider Date of Admission: 06/10/18 00:10 Attending physician: Poli Mckeon MD Consults: 06/09/18 22:12 Stroke Team Consult Routine Comment: Consulting Provider: Neurohospitalist Consulting Physician: NEUROHOSP Neurohospitalist for Consult: David Meadows Neurohospitalist for Consult: Jj Piedra Reason for Consult: right sided numbness, on BCP Hospital Course - Lab Results Lab Results: Most Recent Lab Values WBC 7.7 10^3/uL (4.5-11.0) 06/09/18 21:37 RBC 4.17 10^6/uL (3.5-6.1) 06/09/18 21:37 Hgb 12.2 g/dL (12.0-16.0) 06/09/18 21:37 Hct 37.3 % (36.0-48.0) 06/09/18 21:37 MCV 89.4 fl (80.0-105.0) 06/09/18 21:37 MCH 29.3 pg (25.0-35.0) 06/09/18 21:37 MCHC 32.7 g/dl (31.0-37.0) 06/09/18 21:37 RDW 14.2 % (11.5-14.5) 06/09/18 21:37 Plt Count 236 10^3/uL (120.0-450.0) 06/09/18 21:37 MPV 10.2 fl (7.0-11.0) 06/09/18 21:37 Neut % (Auto) 40.8 % (50.0-68.0) L 06/09/18 21:37 Lymph % (Auto) 48.8 % (22.0-35.0) H 06/09/18 21:37 Maury % (Auto) 5.6 % (1.0-6.0) 06/09/18 21:37 Eos % (Auto) 4.5 % (1.5-5.0) 06/09/18 21:37 Baso % (Auto) 0.3 % (0.0-3.0) 06/09/18 21:37 Lymph # (Auto) 3.8 (1.2-3.4) H 06/09/18 21:37 Maury # (Auto) 0.4 (0.1-0.6) 06/09/18 21:37 Eos # (Auto) 0.4 (0.0-0.7) 06/09/18 21:37 Baso # (Auto) 0.02 K/mm3 (0.0-2.0) 06/09/18 21:37 Absolute Neuts (auto) 3.14 (1.4-6.5) 06/09/18 21:37 PT 12.2 SECONDS (9.4-12.5) 06/09/18 21:37 INR 1.08 06/09/18 21:37 APTT 29.3 Seconds (26.9-38.3) 06/09/18 21:37 Sodium 140 mmol/L (132-148) 06/09/18 21:37 Potassium 3.8 mmol/L (3.6-5.0) 06/09/18 21:37 Chloride 105 mmol/L (98-107) 06/09/18 21:37 Carbon Dioxide 28 mmol/L (21-33) 06/09/18 21:37 Anion Gap 11 (10-20) 06/09/18 21:37 BUN 16 mg/dL (7-21) 06/09/18 21:37 Creatinine 0.7 mg/dl (0.7-1.2) 06/09/18 21:37 Est GFR ( Amer) > 60 06/09/18 21:37 Est GFR (Non-Af Amer) > 60 06/09/18 21:37 Random Glucose 85 mg/dL (70-110) 06/09/18 21:37 Hemoglobin A1c 5.1 % (4.2-6.5) 06/09/18 21:37 Calcium 9.2 mg/dL (8.4-10.5) 06/09/18 21:37 Iron 121 ug/dL (45-180) 06/09/18 21:37 TIBC 370 ug/dL (265-497) 06/09/18 21:37 % Saturation 33 % (20-55) 06/09/18 21:37 Total Bilirubin 0.1 mg/dL (0.2-1.3) L 06/09/18 21:37 AST 19 U/L (14-36) 06/09/18 21:37 ALT 14 U/L (7-56) 06/09/18 21:37 Alkaline Phosphatase 41 U/L (38-126) 06/09/18 21:37 Troponin I < 0.01 ng/mL 06/09/18 21:37 Total Protein 7.3 g/dL (5.8-8.3) 06/09/18 21:37 Albumin 4.0 g/dL (3.0-4.8) 06/09/18 21:37 Globulin 3.3 gm/dL 06/09/18 21:37 Albumin/Globulin Ratio 1.2 (1.1-1.8) 06/09/18 21:37 Triglycerides 60 mg/dL (35-160) 06/09/18 21:37 Cholesterol 190 mg/dL (130-200) 06/09/18 21:37 LDL Cholesterol Direct 119 mg/dL (0-129) 06/09/18 21:37 HDL Cholesterol 57 mg/dL (29-60) 06/09/18 21:37 Vitamin B12 490 pg/mL (239-931) 06/09/18 21:37 Folate 5.4 ng/mL 06/09/18 21:37 TSH 3rd Generation 2.29 mIU/mL (0.46-4.68) 06/09/18 21:37 Urine Opiates Screen Negative (NEGATIVE) 06/09/18 22:52 Urine Methadone Screen Negative (NEGATIVE) 06/09/18 22:52 Ur Barbiturates Screen Negative (NEGATIVE) 06/09/18 22:52 Ur Phencyclidine Scrn Negative (NEGATIVE) 06/09/18 22:52 Ur Amphetamines Screen Negative (NEGATIVE) 06/09/18 22:52 U Benzodiazepines Scrn Negative (NEGATIVE) 06/09/18 22:52 U Oth Cocaine Metabols Negative (NEGATIVE) 06/09/18 22:52 U Cannabinoids Screen Negative (NEGATIVE) 06/09/18 22:52 RPR Nonreactive (NONREACTIVE) 06/09/18 21:37 Blood Type O POSITIVE 06/09/18 23:08 Blood Type Confirm O POSITIVE 06/09/18 23:22 Antibody Screen Negative 06/09/18 23:08 BBK History Checked No verified bt 06/09/18 23:08 Attending/Attestation - Attestation I have personally seen and examined this patient.: Yes I have fully participated in the care of the patient.: Yes I have reviewed all pertinent clinical information, including history, physical exam and plan: Yes Notes (Text): 06/11/18 10:56 Medical record note made by the resident after discussion with my direction and input after the patient was personally seen and examined by me. I have reviewed the chart and agree that the record accurately reflects by personal performance of the history, physical exam, data review, and medical decision-making, in the course for the patient. I have also personally directed the plan of care. 27 years old female with no significant PMH was admitted with a two day H/O of R distal forearm and 1st dorsal web space numbness that changed to hyperesthesias, there was no other focal deficit, CT scan of head,MRI of Brain,C spine and Lumber spines are normal.Patient does not has any focal deficit.She was evaluated by Neurology and has been cleared to be discharged.She will be discharged home on Gabapentin. She will follow up with PCP and Neurology. Management plan was discussed in detail with patient. Education was provided.
== END 2018-06-10 18:07 | disposition home or self-care (01) ==
LOC: ED 21:14 → ERH 06-10 00:10 → 2RNO 06-10 01:10
PROVIDERS: ADMIT Internal Medicine; ATTEND Internal Medicine
DX: G62.9 Polyneuropathy, unspecified (principal); Z82.3 Family history of stroke; Z82.49 Family history of ischemic heart disease and other diseases of the circulatory system
CPT/HCPCS: 70450; 70551; 71045; 72141; 72148; 80053; 80061; 80324; 80345; 80346; 80349; 80353; 80358; 80361; 81025; 82607; 82746; 83036; 83540; 83550; 83992; 84443; 84484; 85025; 85610; 85730; 86592; 86850; 86900; 93005; 99285; G0378; J7030